=== PATIENT | female | born 1960 | race Caucasian/White ===

== ENCOUNTER 2022-09-25 16:10 | Emergency (ER) | payer OTHER ==
[~2022-09-25] VITALS: Ht 167.6 cm; Wt 59.7 kg
[2022-09-25 17:10] LABS: Basophils # (auto) 0 10 ^3/uL (0-0.2); Basophils % (auto) 0.5 % (0.0-2.0); Eosinophils # (auto) 0.1 10 ^3/uL (0-0.8); Hematocrit 47.4 % (36.0-46.0); Hemoglobin 15.5 g/dL (12.2-16.2); Lymphocytes # (auto) 1.9 10 ^3/uL (0.4-5.4); Lymphocytes % (auto) 34.5 % (10.0-50.0); Mean Corpuscular Hemoglobin 30.1 pg (28.0-32.0); Mean Corpuscular Hgb Conc. 32.7 g/dL (32.0-36.0); Mean Corpuscular Volume 92.2 fL (80.0-100.0); Monocytes # (auto) 0.4 10 ^3/uL (0-1.3); Neutrophils # (auto) 3.1 10 ^3/uL (1.6-8.6); Nucleated Red Blood Cells % 0.1 %; Red Blood Cells 5.14 10^6/uL (4.0-5.20); Red Cell Distribution Width 12.6 % (11.8-14.3); White Blood Cell 5.5 10^3/uL (4.4-10.8)
[2022-09-25] MEDS ORDERED: ASPirin 325 MG TAB PO ONE (17:15)
[2022-09-25] MEDS ORDERED: methylPREDNISolone SOD SUCC 125 MG/2 ML VL IV ONE (17:15)
[2022-09-25] MEDS ORDERED: IPRATROPIUM BROM 0.5 MG/2.5ML INH SOL NEB ONE (17:15)
[2022-09-25] MEDS ORDERED: ALBUTEROL SULF 2.5 MG/0.5ML(0.5%) NEB SOLN NEB ONE ×2 (17:15→23:30)
[2022-09-25] MEDS ORDERED: ALBUTEROL MEDNEB 2.5 mg/3ml NEB ONE ×2 (17:17→23:41)
[2022-09-25 17:26] LABS: Albumin 4.2 g/dL (3.4-5.0); Calcium 9.4 mg/dL (8.5-10.1); Potassium 4.6 mmol/L (3.5-5.1)
[2022-09-25 17:28] LABS: BUN/Creatinine Ratio 26.9
[2022-09-25 17:31] LABS: Bilirubin, Total 0.6 mg/dL (0.2-1.0); Total Protein 6.9 g/dL (6.4-8.2)
[2022-09-25] MEDS ORDERED: ALBUAER3 IN (23:07)
[2022-09-25] MEDS ORDERED: DOXY-286 PO (23:07)
[2022-09-25] MEDS ORDERED: METH4PAK PO (23:07)
[2022-09-25] MEDS ORDERED: BUDE1AER4 IN (23:07)
[2022-09-26 01:35] VITALS: BP 133/95
== END 2022-09-26 01:56 | disposition home or self-care (01) ==
LOC: ER 16:10
DX: R06.02 Shortness of breath (principal); J45.909 Unspecified asthma, uncomplicated; R09.02 Hypoxemia; Z90.710 Acquired absence of both cervix and uterus; Z98.890 Other specified postprocedural states; Z20.822 Contact with and (suspected) exposure to COVID-19
CPT/HCPCS: 36415; 36600; 71045; 80053; 82805; 84484; 85025; 85379; 87426; 93005; 94640; 96374; 99285; J2930; J7644

== ENCOUNTER 2024-05-11 12:43 | Inpatient (IN) | payer MEDICAID, OTHER ==
[~2024-05-11] VITALS: Ht 165.1 cm; Wt 64.2 kg
[~2024-05-11 12:43] MED LIST: ALBUAER3 IN; BUDE1AER4 IN; DOXY-286 PO; METH4PAK PO
[2024-05-11] MEDS: IPRATROPIUM BROM 0.5 MG/2.5ML INH SOL NEB ONE (13:43)
[2024-05-11] MEDS: ALBUTEROL SULF 2.5 MG/0.5ML(0.5%) NEB SOLN NEB ONE ×2 (13:43→16:52)
[2024-05-11 14:14] LABS: Basophils # (auto) 0 10 ^3/uL (0-0.2); Basophils % (auto) 0.8 % (0.0-2.0); Eosinophils # (auto) 0.3 10 ^3/uL (0-0.8); Eosinophils % (auto) 4.3 % (0.0-7.0); Hematocrit 42.7 % (36.0-46.0); Hemoglobin 14.5 g/dL (12.2-16.2); Lymphocytes # (auto) 2.1 10 ^3/uL (0.4-5.4); Lymphocytes % (auto) 33.8 % (10.0-50.0); Mean Corpuscular Hemoglobin 30.9 pg (28.0-32.0); Mean Corpuscular Hgb Conc. 33.9 g/dL (32.0-36.0); Mean Corpuscular Volume 91.2 fL (80.0-100.0); Monocytes # (auto) 0.5 10 ^3/uL (0-1.3); Monocytes % (auto) 7.8 % (0.0-12.0); Neutrophils # (auto) 3.2 10 ^3/uL (1.6-8.6); Neutrophils % (auto) 53.3 % (37.0-80.0); Nucleated Red Blood Cells % 0.1 %; Platelet Count (auto) 183 10^3/uL (140-450); Red Blood Cells 4.68 10^6/uL (4.0-5.20); Red Cell Distribution Width 12.8 % (11.8-14.3); White Blood Cell 6.1 10^3/uL (4.4-10.8)
[2024-05-11 14:49] LABS: Alanine Aminotransferase 19 U/L (7-40); Albumin 4.7 g/dL (3.2-4.8); Alkaline Phosphatase 66 U/L (46-116); Anion Gap 9 (5-15); Aspartate Aminotransferase 11 U/L (13-40); BUN/Creatinine Ratio 26.4 (10.0-20.0); Blood Urea Nitrogen 14 mg/dL (9-23); Calcium 10.1 mg/dL (8.7-10.4); Carbon Dioxide 27 mmol/L (20-30); Chloride 106 mmol/L (98-107); Glucose 116 mg/dL (74-106); Magnesium 1.9 mg/dL (1.6-2.6); Potassium 3.7 mmol/L (3.5-5.1); Sodium 142 mmol/L (136-145)
[2024-05-11 14:50] LABS: Bilirubin, Total 0.6 mg/dL (0.2-1.0); Total Protein 6.8 g/dL (5.7-8.2)
[2024-05-11] MEDS: methylPREDNISolone SOD SUCC 125 MG/2 ML VL IV ONE (15:16)
[2024-05-11] MEDS: FLUTICASONE PROP NASAL SPR 0.05 % (50MCG) 16GM EACHNOSTRI ONE (15:16)
[2024-05-11] MEDS ORDERED: ALBUAER3 IN (16:31)
[2024-05-11] MEDS ORDERED: METH4PAK PO (16:31)
[2024-05-11] MEDS ORDERED: ALBU0.084 NEB (16:31)
[2024-05-11] MEDS ORDERED: LEVO500T91 PO (16:31)
[2024-05-11] MEDS ORDERED: ENOXAPARIN SOD 40 MG/0.4 ML SYRINGE SC SCH (18:00)
[2024-05-11] MEDS ORDERED: NITROGLYCERIN 0.4 MG SL TAB SL PRN (18:00)
[2024-05-11] MEDS ORDERED: DOCUSATE SOD 100 MG CAP PO PRN (18:00)
[2024-05-11] MEDS: IOHEXOL 350 MG/ML 100ML IJ ONE (18:29)
[2024-05-11 19:39] LABS: INR 1.02 (0.9-1.15)
[2024-05-11] MEDS: ONDANSETRON HCL 4 MG/2 ML VIAL IV PRN (20:27)
[2024-05-11] MEDS: AZITHROMYCIN 250 MG TAB PO ONE (20:27)
[2024-05-11] MEDS: MORPHINE SULFATE INJ 2 MG/ml SYRG IV PRN (20:28)
[2024-05-11] MEDS: SODIUM CHLORIDE 0.9% 1,000 ML IV SCH (20:28)
[2024-05-11] MEDS: ENOXAPARIN SOD 60 MG/0.6 ML SYRINGE SC SCH (20:28)
[2024-05-11] MEDS: PANTOPRAZOLE 40 MG/10 ML VIAL INJ IV ONE (20:28)
[2024-05-12] VITALS (8 sets, daily range): BP systolic 135–151; BP diastolic 75–95; PULSE 86–101; RESP 16–22; TEMP 97.6–98; O2SAT 96–99
[2024-05-12] MEDS: methylPREDNISolone SOD SUCC 125 MG/2 ML VL IV SCH (00:34)
[2024-05-12 02:28] LABS: Urine Bacteria None Seen /hpf (None Seen)
[2024-05-12 02:48] LABS: Urine Blood TRACE /uL (Negative); Urine Clarity Clear (Clear); Urine Color Light-Yellow (Yellow); Urine Protein, UAD Negative (Negative); Urine Specific Gravity 1.028 (1.001-1.035); Urine Urobilinogen Normal (Negative); Urine WBC 1 /hpf (0 - 5); Urine pH 5.5 (5.0-9.0)
[2024-05-12 05:26] LABS: Alanine Aminotransferase 18 U/L (7-40); Albumin 4.7 g/dL (3.2-4.8); Alkaline Phosphatase 65 U/L (46-116); Anion Gap 6 (5-15); Aspartate Aminotransferase 10 U/L (13-40); BUN/Creatinine Ratio 14.3 (10.0-20.0); Blood Urea Nitrogen 7 mg/dL (9-23); Calcium 9.8 mg/dL (8.7-10.4); Carbon Dioxide 26 mmol/L (20-30); Chloride 108 mmol/L (98-107); Glucose 142 mg/dL (74-106); Potassium 4.1 mmol/L (3.5-5.1); Sodium 140 mmol/L (136-145)
[2024-05-12 05:27] LABS: Basophils # (auto) 0 10 ^3/uL (0-0.2); Basophils % (auto) 0.1 % (0.0-2.0); Bilirubin, Total 0.4 mg/dL (0.2-1.0); Eosinophils # (auto) 0 10 ^3/uL (0-0.8); Hematocrit 40.7 % (36.0-46.0); Hemoglobin 13.7 g/dL (12.2-16.2); Lymphocytes # (auto) 0.6 10 ^3/uL (0.4-5.4); Lymphocytes % (auto) 15.6 % (10.0-50.0); Mean Corpuscular Hemoglobin 30.6 pg (28.0-32.0); Mean Corpuscular Hgb Conc. 33.5 g/dL (32.0-36.0); Mean Corpuscular Volume 91.3 fL (80.0-100.0); Monocytes # (auto) 0 10 ^3/uL (0-1.3); Monocytes % (auto) 1.1 % (0.0-12.0); Neutrophils # (auto) 3.2 10 ^3/uL (1.6-8.6); Neutrophils % (auto) 83.2 % (37.0-80.0); Nucleated Red Blood Cells % 0.1 %; Platelet Count (auto) 179 10^3/uL (140-450); Red Blood Cells 4.46 10^6/uL (4.0-5.20); Red Cell Distribution Width 12.8 % (11.8-14.3); Total Protein 7.1 g/dL (5.7-8.2); White Blood Cell 3.8 10^3/uL (4.4-10.8)
[2024-05-12] MEDS: amLODIPine BESYLATE 5 MG TAB PO ONE (09:55)
[2024-05-12] MEDS: PANTOPRAZOLE 40 MG/10 ML VIAL INJ IV SCH (10:02)
[2024-05-12] MEDS: AZITHROMYCIN 250 MG TAB PO SCH (10:18)
[2024-05-12 10:27] LABS: COVID19 ANTIGEN SOFIA FIA NEGATIVE (NEGATIVE)
[2024-05-12] MEDS: PNEUMOCOCCAL VACC POLYS 25 MCG/0.5 ML VIAL IM ONE (15:15)
[2024-05-12 19:10] LABS: Amphetamine Screen, Urine Neg (NEGATIVE); Barbiturate Scree,Urine Neg (NEGATIVE); Benzodiazephine Screen, Urine Neg (NEGATIVE); Cocaine Screen, Urine Neg (NEGATIVE); Opiate Scree,Urine Pos (NEGATIVE); Phencyclidine Screen, Urine Neg (NEGATIVE)
[2024-05-12 19:11] LABS: Cannabinoid Screen, Urine Pos (NEGATIVE)
[2024-05-12] MEDS: ALBUTEROL SULF 2.5 MG/0.5ML(0.5%) NEB SOLN NEB PRN (20:28)
[2024-05-12] MEDS: IPRATROPIUM BROM 0.5 MG/2.5ML INH SOL NEB PRN (20:28)
[2024-05-13] VITALS (17 sets, daily range): BP systolic 121–165; BP diastolic 80–97; PULSE 70–90; RESP 17–20; TEMP 97.8–98.3; O2SAT 92–98
[2024-05-13 10:21] LABS: Hepatitis B Surface Antigen Negative (Negative)
[2024-05-13] MEDS: methylPREDNISolone SOD SUCC 40 MG/ML VL IV SCH (10:28)
[2024-05-13 10:42] LABS: Hepatitis C Antibody Negative (Negative)
[2024-05-13] MEDS: HYDROcodone-ACET 5/325MG TAB PO PRN (14:21)
[2024-05-13] MEDS: ALBUTEROL SULF 2.5 MG/0.5ML(0.5%) NEB SOLN NEB SCH (18:07)
[2024-05-13] MEDS: IPRATROPIUM BROM 0.5 MG/2.5ML INH SOL NEB SCH (18:07)
[2024-05-13] MEDS: MAGNESIUM SULFATE 1GM/100ML 100 ML IV SCH (23:10)
[2024-05-14] VITALS (10 sets, daily range): BP systolic 127–172; BP diastolic 86–105; PULSE 67–87; RESP 0–20; TEMP 98–99.2; O2SAT 93–98
[2024-05-14] MEDS: HYDROcodone-ACET 10/325MG TAB PO PRN (08:33)
[2024-05-14] MEDS: ENOXAPARIN SOD 40 MG/0.4 ML SYRINGE SC SCH (08:35)
== END 2024-05-14 11:21 | disposition home or self-care (01) | DRG 140 ==
LOC: EDBD 12:43 → ER 12:43 → OVERFLOW 18:10 → WEST WING 05-12 13:31
PROVIDERS: ADMIT Internal Medicine Pulmonary Disease; ATTEND Internal Medicine Pulmonary Disease
DX: J44.1 Chronic obstructive pulmonary disease with (acute) exacerbation (principal); E78.5 Hyperlipidemia, unspecified; G89.29 Other chronic pain; Z20.822 Contact with and (suspected) exposure to COVID-19; M41.9 Scoliosis, unspecified; F12.90 Cannabis use, unspecified, uncomplicated; G25.2 Other specified forms of tremor; Z90.710 Acquired absence of both cervix and uterus; Z91.199 Patient's noncompliance with other medical treatment and regimen due to unspecified reason; Z79.899 Other long term (current) drug therapy
CPT/HCPCS: 36415; 71045; 71275; 80053; 80307; 81001; 83605; 83735; 83880; 84484; 85025; 85610; 86803; 87070; 87205; 87340; 87426; 93005; 94640; G0378; J2405; J2470